=== PATIENT | male | born 1970 | race Caucasian/White ===

== ENCOUNTER 2016-07-21 11:14 | Emergency (ER) | payer OTHER ==
[~2016-07-21] VITALS: Ht 190.5 cm; Wt 104.5 kg
[~2016-07-21 11:14] MED LIST: TEST100V4 IM
--- NOTE | 2016-07-21 11:20 | ED.REPORT ---
HPI-Trauma Minor / Fall Date of Service July 21, 2016 ED Provider: Kiley Scruggs History of Present Illness: bent at the waist forward, piece of art fell on him 200 lbs at 1015 today positive loc. then put 12 inch blocks under feet and chest. took 8 advil and a muscle relaxer and ice on back. back pain. primary care is raymond . testerone and omeprazole. 11/12. was pulling art work and nails came out of the wood. took 1 flexeril Nursing Notes Chief Complaint: Multiple Trauma/Fall Allergies: Coded Allergies: cephalexin (Verified Allergy, Unknown, anaphylaxis, 06/22/15) Scheduled Testosterone Cypionate (Testosterone Cypionate) 100 Mg/1 Ml Vial 75 MG IM WEEKLY General Time Seen by MD: 11:17 Chief Complaint Fall Hx Obtained From: Patient Past Medical History Past Medical History Denies: Asthma Past Surgical History denies Smoking History Former Smoker (quit 7 years ago), Never Smoker Social History Alcohol Use: 1-3 per day Drug Use: THC Occupation lives with partner 07/21/2016 Ambulatory Status Independent Review of Systems Basic Review of Systems Cardiovascular: No chest pain, No dyspnea on exertion, No orthopnea, No parox noct dyspnea, No palpitations GI: No abdominal pain, No anorexia, No nausea, No vomiting : No dysuria, No frequency Hematologic: No bleeding, No bruising Endocrine: No cold intolerance, No heat intolerance, No weight gain, No weight loss Allergy / Immune: No allergy Psychiatric: Normal thought content Physical Exam Initial Vital Signs Vital Signs (First) Date Time Temp Pulse Resp B/P Pulse Ox O2 Delivery O2 Flow Rate FiO2 07/21/16 11:21 77 22 137/76 97 Room Air Initial VS: Reviewed, Vital signs normal Head / Eyes: Atraumatic, Normocephalic, PERRL ENT: Mucous membranes moist, Conjunctiva normal, No scleral icterus Respiratory: Breath sounds normal, Clear to auscultation, No respiratory distress Cardiovascular: Regular rate & rhythm, Heart sounds normal, Intact distal pulses Abdomen / GI: Soft, Non-tender, No guarding, No rebound, No distention Back: No CVA tenderness Lymphatic: No lymphadenopathy Extremities: Vascular intact, Neuro intact, No swelling, No tenderness Skin: Warm, Dry, No cyanosis Neurologic: Alert, Oriented, Nonfocal Psychiatric: Mood/affect normal, Behavior normal, Normal thought content General/Constitutional: Awake, Alert, No acute distress, Well appearing, Well developed, Well hydrated Neck: Atraumatic, Supple, No meningismus, Full range of motion ENT: Atraumatic, Airway patent, Mucous membranes moist, Pharynx NL Respiratory / Chest: Atraumatic, Breath sounds NL, Breath sounds = bilat Cardiovascular: Heart rate NL, Regular rhythm, Heart sounds NL Abdomen: Atraumatic, Soft, Non-tender Flank / Spine / Paraspinal: Positive: Lumbar spine tender... (High) Interpretation & Diagnostics Lab Results Interpretation Result Diagram: 07/21/16 1230 07/21/16 1230 Test 07/21/16 12:30 White Blood Count 13.9th/mm3 (3.8-10.1) Red Blood Count 4.85mil/mm3 (4.40-5.80) Hemoglobin 15.5g/dL (13.8-17.2) Hematocrit 43.7% (41.0-50.0) Mean Corpuscular Volume 90.1fL (81-100) Mean Corpuscular Hemoglobin 32.0pg (27.0-35.0) Mean Corpuscular Hemoglobin Concent 35.5% (32.0-37.0) Red Cell Distribution Width 12.3% (12.3-15.4) Platelet Count 259bil/L (150-400) Neutrophils (%) (Auto) 84.4% (40-74) Lymphocytes (%) (Auto) 7.2% (14-46) Monocytes (%) (Auto) 6.8% (4-12) Eosinophils (%) (Auto) 0.7% (0-5) Basophils (%) (Auto) 0.4% (0-3) Sodium Level 138mEq/L (134-144) Potassium Level 4.2mEq/L (3.5-5.2) Chloride Level 100mEq/L (97-108) Carbon Dioxide Level 23mmol/L (18-29) Blood Urea Nitrogen 12mg/dL (6-24) Creatinine 0.88mg/dL (0.76-1.27) Estimat Glomerular Filtration Rate 99mL/min (>59) Glucose Level 97mg/dL (60-99) Calcium Level 8.9mg/dL (8.5-10.1) Total Bilirubin 1.0mg/dL (0.0-1.2) Aspartate Amino Transf (AST/SGOT) 36U/L (0-50) Alanine Aminotransferase (ALT/SGPT) 26U/L (0-44) Alkaline Phosphatase 70U/L (25-150) Total Protein 7.2g/dL (6.4-8.4) Albumin 4.0g/dL (3.4-5.0) Lab Results Interpretation: refusing CT of head CT Abd / Pelvis Interpretation ROCEDURE: CT LUMBAR SPINE WITHOUT CONTRAST ([id number]) INDICATIONS: compression fracture TECHNIQUE: Noncontrast 3 mm thick sections acquired from the T12 level to the sacrum. Sagittal and coronal reformats were constructed. For radiation dose reduction, the following was used: automated exposure control. COMPARISON: [facility], CR, XR LUMBAR SPINE 2 OR 3VW, 07/21/2016, 13:13. FINDINGS: Image quality: Excellent. Bones: There is normal bony alignment. Acute L1 compression fracture is stable compared to plain film radiograph obtained 07/21/2016. No compression fracture results in approximately 10-15% loss of normal vertebral body height. Compression fracture involves the anterior and middle columns. There is a minimally retropulsed bony fragment along the superior aspect of the L1 vertebral body. No kyphosis associated with the L1 compression fracture. No suspicious lytic or blastic bony lesions. Moderate L5-S1 degenerative disc changes are noted. Mild L4-L5 degenerative changes are noted. No pars defects. Soft tissues: No retroperitoneal masses or hematomas. Visualized aorta is normal in caliber. IMPRESSION: Acute L1 compression fracture resulting in approximately 15% loss of normal vertebral body height. Dictated by: Denisha Alfred MD, PhD on 07/21/2016 at 14:59 Approved by: Denisha Alfred MD, PhD on 07/21/2016 at 15:05 Re-Eval/Medical Decision Med Decision/Clinical Course 46 year old male presents to the ER for evualation of injury which happened while moving art work. Reports back is most painful. X-ray indicates compression fracture at L 1. Patient's pain is controlled. Discharge & Departure Impression: Primary Impression: Compression fracture of L1 lumbar vertebra Encounter type: initial encounter Fracture type: closed Qualified Code: S32.010A - Wedge compression fracture of first lumbar vertebra, initial encounter for closed fracture Disposition: Home Patient Instructions: Vertebral Compression Fracture (ED) Additional Instructions: I am sorry this has happened to you. The x-ray and the CT show a compression fracture at L 1. There are no bony fragments going into the canal. This will heal with time. Gentle movement is important for the next week or two. Use ice 15 minutes on and 15 minutes off. Ibuprofen 800 mg 3 times a day for 7 days. Use hydrocodone 1 up to 2 times a day as needed for severe unrelenting pain. Please follow with primary care in the next week or two. Your white count is mildly elevated. Not uncommon after a trauma. REturn with any concerns. Referrals: Ganga Chinchilla ND (PCP) EDSupervising Provider for APC: Esteban Barrios MD copies to: Ganga Chinchilla ND, Sue ARNP July 21, 2016 11:20
[2016-07-21 11:21] VITALS: BP 137/76; PULSE 77; RESP 22; O2SAT 97
[2016-07-21] MEDS ORDERED: HYDROcodone-APAP 5-325 mg Tablet PO ONE (11:35)
[2016-07-21] MEDS ORDERED: 0.9% Sodium Chloride 1,000 ML IV ONE (11:35)
[2016-07-21 12:54] LABS: BASOPHILS % (AUTO) 0.4 % (0-3); EOSINOPHILS % (AUTO) 0.7 % (0-5); MONOCYTES % (AUTO) 6.8 % (4-12); Mean Corpuscular Volume 90.1 fL (81-100); NEUTROPHILS % (AUTO) 84.4 % (40-74); Platelet Count 259 bil/L (150-400)
--- NOTE | 2016-07-21 13:59 | DRSVH ---
PROCEDURE: X-RAY LUMBAR SPINE, 2 OR 3 VIEW INDICATIONS: 200 lb art fell on him TECHNIQUE: 3 views of the lumbar spine were acquired. COMPARISON: None. FINDINGS: Bones: 5 [id number] vertebrae are present. There is minimal retrolisthesis at L1-L2, L2-L3, L3- L4, and L5-S1. There is a mild superior endplate compression fracture of the L1 vertebral body with approximately 25% loss of height. Finding is new from the prior study and is suspicious for an acute compression fracture. There is mild to moderate disc space narrowing at L5-S1 with mild endplate sc lerosis. Soft tissues: Overlying bowel gas pattern is normal. No suspicious soft tissue calcifications. IMPRESSION: 1. Mild superior endplate compression fracture of the L1 vertebral body new from the prior study and likely acute. No retropulsed bony fragments. Dictated by: Maurice Lindsay M.D. on 07/21/2016 at 13:51 Approved by: Maurice Lindsay M.D. on 07/21/2016 at 13:57
--- NOTE | 2016-07-21 14:00 | DRSVH ---
PROCEDURE: X-RAY THORACIC SPINE, 3 VIEWS INDICATIONS: 200 lb art fell on him TECHNIQUE: 3 views of the thoracic spine were acquired. COMPARISON: [facility], CR, XR LUMBAR SPINE 2 OR 3VW, 07/21/2016, 13:13. FINDINGS: Bones: No definite fractures or dislocations in the thoracic spine. The L1 compression fracture see n on the concurrent study of the lumbar spine is not well-visualized. No suspicious bony lesions. 1 2 pairs of ribs are noted, and appear intact where visualized. Soft tissues: No paravertebral stripe thickening. IMPRESSION: 1. No definite fracture in the thoracic spine. Dictated by: Maurice Lindsay M.D. on 07/21/2016 at 13:57 Approved by: Maurice Lindsay M.D. on 07/21/2016 at 13:58
--- NOTE | 2016-07-21 15:06 | DRSVH ---
PROCEDURE: CT LUMBAR SPINE WITHOUT CONTRAST ([id number]) INDICATIONS: compression fracture TECHNIQUE: Noncontrast 3 mm thick sections acquired from the T12 level to the sacrum. Sagittal and coronal refo rmats were constructed. For radiation dose reduction, the following was used: automated exposure co ntrol. COMPARISON: [facility], CR, XR LUMBAR SPINE 2 OR 3VW, 07/21/2016, 13:13. FINDINGS: Image quality: Excellent. Bones: There is normal bony alignment. Acute L1 compression fracture is stable compared to plain elena m radiograph obtained 07/21/2016. No compression fracture results in approximately 10-15% loss of norm al vertebral body height. Compression fracture involves the anterior and middle columns. There is a m inimally retropulsed bony fragment along the superior aspect of the L1 vertebral body. No kyphosis as sociated with the L1 compression fracture. No suspicious lytic or blastic bony lesions. Moderate L5- S1 degenerative disc changes are noted. Mild L4-L5 degenerative changes are noted. No pars defects. Soft tissues: No retroperitoneal masses or hematomas. Visualized aorta is normal in caliber. IMPRESSION: Acute L1 compression fracture resulting in approximately 15% loss of normal vertebral bod y height. Dictated by: Denisha Alfred MD, PhD on 07/21/2016 at 14:59 Approved by: Denisha Alfred MD, PhD on 07/21/2016 at 15:05
[2016-07-21 16:04] VITALS: BP 122/83; PULSE 83; RESP 16; O2SAT 99
== END 2016-07-21 16:06 | disposition home or self-care (01) ==
LOC: SED 11:14
DX: S32.010A Wedge compression fracture of first lumbar vertebra, initial encounter for closed fracture (principal); W20.8XXA Other cause of strike by thrown, projected or falling object, initial encounter; Y93.89 Activity, other specified; Y92.89 Other specified places as the place of occurrence of the external cause; Y99.8 Other external cause status; Z87.891 Personal history of nicotine dependence; Z88.1 Allergy status to other antibiotic agents
CPT/HCPCS: 36415; 72072; 72100; 72131; 80053; 85025; 96361; 96374; 99285; J2060; J7030